=== PATIENT | female | born 1980 | race Caucasian/White ===

== ENCOUNTER → 2017-01-27 | Outpatient (REF) | payer MEDICARE, MEDICAID ==
[2017-01-27 14:37] LABS: BASOPHILS % (AUTO) 0 % (0-2); EOSINOPHILS # (AUTO) 0.2 10^3uL; EOSINOPHILS % (AUTO) 2 % (0-4); LYMPHOCYTES # (AUTO) 2.7 X10^3; MEAN CORPUSCULAR HGB CONC 32.4 g/dL (31.0-37.0); MEAN CORPUSCULAR VOLUME 90 FL (80-100); MONOCYTES % (AUTO) 12 % (3-11); NEUTROPHILS # (AUTO) 4.3 X10^3; NEUTROPHILS % (AUTO) 52 % (51-67); PLATELET COUNT 307 10^3uL (150-450); WHITE BLOOD COUNT 8.24 10^3uL (4.0-11.0)
[2017-01-27 19:29] LABS: IRON 21 ug/dL (50-170); UNBOUND IRON CONTENT 195 ug/dl (126-382)
== END ==
LOC: LAB 13:23
PROVIDERS: ATTEND Family Medicine
DX: D64.89 Other specified anemias (principal); D50.8 Other iron deficiency anemias
CPT/HCPCS: 82728; 83540; 83550; 85025

== ENCOUNTER 2017-02-10 15:40 | Outpatient (RCR) | payer MEDICARE, OTHER ==
[~2017-02-10] VITALS: Ht 170.2 cm; Wt 65.3 kg
[~2017-02-10 15:40] MED LIST: DOXY100C2 PO; FERR325T36 PO; METR500T PO; NF-ESOM40C PO; PANT40TA3 PO
[2017-02-10 15:43] VITALS: BP 112/71
[2017-02-10] MEDS ORDERED: IRON SUCROSE 200 MG in NORMAL SALINE 150 ML IV ONE (15:45)
[2017-02-10] MEDS ORDERED: NS FLUSH 3 ML PRN IV (15:45)
--- NOTE | 2017-02-10 15:50 | NUR ---
20 g, 1 inch needle used for port
[2017-02-10] MEDS: NS FLUSH 10 ML PRN IV ×2 (15:51→17:16)
[2017-02-24] MEDS ORDERED: IRON SUCROSE 200 MG in NORMAL SALINE 150 ML IV ONE (15:45)
[2017-03-24] MEDS ORDERED: AMIT10TA6 PO (16:31)
[2017-03-24] MEDS ORDERED: NORG1TAB30 PO (16:31)
== END 2017-04-19 18:24 | disposition home or self-care (01) ==
LOC: EUOP 04-19 18:24
PROVIDERS: ATTEND Family Medicine
DX: D64.89 Other specified anemias (principal); D50.9 Iron deficiency anemia, unspecified
CPT/HCPCS: 96365; J1642; J1756; J7050; 36000

== ENCOUNTER → 2017-02-27 | Outpatient (REF) | payer MEDICARE, OTHER ==
[2017-02-27 16:53] LABS: ANION GAP 16.7 MEQ/L (3-15); CALCULATED IONIZED CALCIUM 3.9 mg/dL (3.8-4.6); TOTAL PROTEIN 7.4 g/dL (6.4-8.5)
[2017-02-28 18:55] LABS: VITAMIN B 12 299 pg/mL (213-816)
== END ==
LOC: LAB 15:55
PROVIDERS: ATTEND Family Medicine
DX: D64.89 Other specified anemias (principal); K63.5 Polyp of colon; G43.109 Migraine with aura, not intractable, without status migrainosus; F41.8 Other specified anxiety disorders; M89.8X6 Other specified disorders of bone, lower leg; I73.00 Raynaud's syndrome without gangrene; K21.9 Gastro-esophageal reflux disease without esophagitis; E55.9 Vitamin D deficiency, unspecified
CPT/HCPCS: 80053; 82306; 82607; 82746; 84443; 85652; 86038; 86140; 86431

== ENCOUNTER → 2017-02-28 | Outpatient (CLI) | payer MEDICARE, OTHER ==
--- NOTE | 2017-02-28 17:39 | Diagnostic Imaging Report ---
INDICATION: Right leg pain. AP and lateral views of the right tibia and fibula are performed. FINDINGS: No fracture or acute bony abnormality is seen. IMPRESSION: Negative right tibia and fibula. Dictated by: Dictated on workstation # [id number]
--- NOTE | 2017-02-28 17:45 | Diagnostic Imaging Report ---
INDICATION: Left leg pain. AP and lateral views of the left tibia and fibula are performed. No fracture or acute bony abnormality is seen. IMPRESSION: Negative left tibia and fibula. Dictated by: Dictated on workstation # [id number]
== END ==
LOC: RAD 16:50
PROVIDERS: ATTEND Family Medicine
DX: M89.8X6 Other specified disorders of bone, lower leg (principal); M79.662 Pain in left lower leg; M79.661 Pain in right lower leg
CPT/HCPCS: 73590

== ENCOUNTER 2017-03-10 15:20 | Outpatient (RCR) | payer MEDICARE, OTHER ==
--- NOTE | 2017-02-24 15:49 | NUR ---
Pt. arrives to 341 ambulatory for outpatient iron infusion.
[2017-02-24 15:55] VITALS: BP 99/57
[2017-02-24 15:57] VITALS: BP 99/57
[2017-02-24] MEDS: NS FLUSH 10 ML PRN IV ×2 (16:11→17:29)
--- NOTE | 2017-02-24 16:14 | NUR ---
L chest port has been accessed using a 20g 1" power port frederick needle under sterile technique. Good blood return and flushes easily, sterile dressing applied. Venofer infusion started at this time.
--- NOTE | 2017-02-24 17:34 | NUR ---
Iron infusion is complete. Port has been flushed with NS and 500 units Heparin and deaccessed. Pt. discharged to home at this time, ambulatory.
[~2017-03-10] VITALS: Ht 170.2 cm; Wt 73.9 kg
[~2017-03-10 15:20] MED LIST changes: +IRON SUCROSE 200 MG in NORMAL SALINE 150 ML IV ONE; +SODIUM CHLORIDE 100 ML INJ ONE; +SODIUM CHLORIDE FLUSH 10 ML ONE
[2017-03-10] MEDS ORDERED: IRON SUCROSE 200 MG in NORMAL SALINE 150 ML IV ONE (15:30)
--- NOTE | 2017-03-10 15:30 | NUR ---
Pt arrives ambulatory to unit for Venofer infusion. VS taken and are WNL. Port a cath accessed using sterile technique. Addendum: 03/15/17 at 1421 by Ramon Ordaz RN Pt was taken to room 341 in ICU for infusion.
[2017-03-10 15:42] VITALS: BP 99/63
[2017-03-10 15:44] VITALS: BP 99/63
--- NOTE | 2017-03-10 15:50 | NUR ---
Venofer started per pump at 100cc/hr. in port. Pt denies any needs at present.
[2017-03-10 15:58] VITALS: BP 99/63
--- NOTE | 2017-03-10 17:35 | NUR ---
Venofer infusion completed and port deaccessed. Prior to deaccessing port was flushed with 10 cc/ns and 3cc Heparin. Pt left ambulatory to home. Denied any adverse reactions.
[2017-03-10] MEDS: NS FLUSH 10 ML PRN IV (17:38)
[2017-03-10 17:42] VITALS: BP 101/62
[2017-03-10 17:47] VITALS: BP 101/62
[2017-03-24] MEDS ORDERED: IRON SUCROSE 200 MG in NORMAL SALINE 150 ML IV ONE (15:35)
[2017-03-24] MEDS ORDERED: NS FLUSH 10 ML PRN IV (15:55)
[2017-03-24] MEDS ORDERED: NORG1TAB30 PO (16:31)
[2017-03-24] MEDS ORDERED: AMIT10TA6 PO (16:31)
[2017-04-07] MEDS ORDERED: NS FLUSH 10 ML PRN IV (15:25)
[2017-04-07] MEDS ORDERED: IRON SUCROSE 200 MG in NORMAL SALINE 150 ML IV ONE (15:25)
--- NOTE | 2017-04-07 15:45 | NUR ---
Patient arrived to infusion room as an outpatient for a Vnofer infusion. Portacath to left upper chest accessed used sterile procedure without difficulty. Blood return was acheived. Venofer is running at 100 ml/hr over 90 minutews. Vital signs were WNL.
[2017-04-07 16:06] VITALS: BP 98/75
--- NOTE | 2017-04-07 17:45 | NUR ---
Infusion completed. Portacath was deaccessed . Finish vital signs were- Temp 98.1, Bp 101/67, pulse 82. Patient denied difficulties.
== END 2017-04-19 18:25 | disposition home or self-care (01) ==
LOC: EUOP 15:22 → ICU 15:22 → EUOP 03-24 15:27
PROVIDERS: ATTEND Family Medicine
DX: D64.89 Other specified anemias (principal); D50.9 Iron deficiency anemia, unspecified
CPT/HCPCS: 96365; 96366; J1642; J1756; J7050; 36000

== ENCOUNTER → 2017-04-11 | Outpatient (REF) | payer MEDICARE, OTHER ==
[~2017-04-11] MED LIST changes: +AMIT10TA6 PO; -IRON SUCROSE 200 MG in NORMAL SALINE 150 ML IV ONE; +NORG1TAB30 PO; -SODIUM CHLORIDE 100 ML INJ ONE; -SODIUM CHLORIDE FLUSH 10 ML ONE
[2017-04-11 15:55] LABS: BASOPHILS % (AUTO) 0 % (0-2); EOSINOPHILS # (AUTO) 0.2 10^3uL; EOSINOPHILS % (AUTO) 2 % (0-4); LYMPHOCYTES # (AUTO) 2.4 X10^3; MEAN CORPUSCULAR HEMOGLOBIN 29.6 PG (26.0-34.0); MEAN CORPUSCULAR HGB CONC 32.3 g/dL (31.0-37.0); MEAN CORPUSCULAR VOLUME 92 FL (80-100); MEAN PLATELET VOLUME 10.1 FL (6.0-9.5); MONOCYTES # (AUTO) 0.9 X10^3; MONOCYTES % (AUTO) 12 % (3-11); NEUTROPHILS # (AUTO) 4.2 X10^3; NEUTROPHILS % (AUTO) 54 % (51-67); PLATELET COUNT 224 10^3uL (150-450); WHITE BLOOD COUNT 7.75 10^3uL (4.0-11.0)
[2017-04-11 21:17] LABS: IRON 56 ug/dL (50-170); UNBOUND IRON CONTENT 138 ug/dl (126-382)
== END ==
LOC: LAB 14:58
PROVIDERS: ATTEND Family Medicine
DX: D64.89 Other specified anemias (principal); D50.9 Iron deficiency anemia, unspecified
CPT/HCPCS: 82728; 83540; 83550; 85025